=== PATIENT | female | born 1955 | race Caucasian/White ===

== ENCOUNTER 2021-12-14 16:51 | Observation (INO) ==
[2021-12-14] MEDS ORDERED: ONDANSETRON 4 MG OD TAB PO STA (17:14)
[2021-12-14 17:52] LABS: Hematocrit (blood only) 44.3 % (34.1-44.9); Hemoglobin 14.9 g/dl (12.0-16.0); Mean Corpuscular Hemoglobin 31.7 pg (25.0-34.0); Mean Corpuscular Hgb Conc 33.6 g/dL (32.0-36.0); Mean Corpuscular Volume 94.3 fL (80.0-100.0); Mean Platelet Volume 9.3 fL (9.4-12.3); Platelet Count 242 K/uL (130-400); RDW Coefficient of Variation 14.2 % (11.5-14.5); RDW Standard Deviation 49.8 fL (36.4-46.3); White Blood Count 10.18 K/ul (4.8-10.8)
[2021-12-14] MEDS ORDERED: MoRPHine SULFATE 2 MG/ML CARP IV STA (18:00)
[2021-12-14] MEDS ORDERED: SODIUM CHLORIDE 0.9% 1000ML 1,000 ML IV SCH (18:01)
[2021-12-14] MEDS ORDERED: ONDANSETRON INJ 2 MG/ML 2 ML VIAL IV STA (18:01)
[2021-12-14 18:08] LABS: Basophils # (auto) 0.03 K/uL (0-0.2); Basophils % (auto) 0.3 %; Eosinophils # (auto) 0.01 K/uL (0-0.50); Eosinophils % (auto) 0.1 %; Immature Granulocytes # (auto) 0.04 K/uL (0.00-0.02); Immature Granulocytes % (auto) 0.4 %; Lymphocytes # (auto) 0.69 K/uL (1.2-3.4); Lymphocytes % (auto) 6.8 %; Monocytes # (auto) 0.22 K/uL (0.24-0.82); Monocytes % (auto) 2.2 %; Neutrophils # (auto) 9.19 K/uL (1.4-6.5); Neutrophils % (auto) 90.2 %
[2021-12-14 18:35] LABS: Potassium 3.2 mmol/L (3.5-5.1)
[2021-12-14 18:36] LABS: Albumin Globulin Ratio 1.2 (0.9-2); Albumin Level 3.9 gm/dl (3.4-5.0); BUN Creatinine Ratio 13.8 (10-20); Bilirubin,Total 0.7 mg/dl (0.2-1.0); Creatinine Clr Calc Pharmacy 75.4 ml/min; Est GFR (African American) 87.8 ml/min; Est GFR (Non-African American) 75.8 ml/min; Globulin 3.2 gm/dl (2.5-4.0); Total Protein 7.1 gm/dl (6.0-8.3)
[2021-12-14] MEDS ORDERED: OPTIRAY 320 100ml IV ONE (18:57)
--- NOTE | 2021-12-14 19:20 | CT Scan Report ---
CT abd pelvis IV con only CLINICAL HISTORY: Abd pain, vomiting, pain radiating to the back COMPARISON STUDY: No previous studies for comparison. CT DOSE: 687.47 mGy.cm TECHNIQUE: Standard CT of the Abdomen and Pelvis was performed with IV contrast. A dose lowering damion hnique was utilized adhering to the principles of ALARA. Contrast Volume: Optiray 320, 92 ml. The patient did not receive oral contrast. FINDINGS: Lung base: The lung bases are clear. There are atelectasis versus scarring is present on the left. Abdominal cavity: There is no evidence for abdominal mass, adenopathy or ascites. Liver: There is homogeneous attenuation of the liver parenchyma. There is no evidence for enhancing m ass lesion. Spleen: There is homogeneous attenuation of the splenic parenchyma. There is no enhancing mass lesion . There is evidence for a cyst involving the lower pole of the spleen. Pancreas: There is homogeneous attenuation of the pancreatic parenchyma. There is no evidence for mas s lesion or peripancreatic fluid collection. Gall Bladder: The gallbladder is well distended with no evidence for intraluminal calculi, wall thick ening or pericholecystic edema. Adrenal glands: There are bilateral low-attenuation adrenal nodules present most characteristic of ad enomas. There is no evidence for enhancing mass lesion. Kidneys: There is homogeneous attenuation of the renal parenchyma bilaterally. There is no evidence f or renal calculus or hydronephrosis. There is no evidence for enhancing mass. There is a sharply defi arlette simple cyst present involving the left kidney. No further follow-up is necessary for this benign finding. Bowel: The appendix is dilated with edema of its wall. Mild periappendiceal inflammatory changes are seen. The findings represent early acute appendicitis. No perforation or abscess is seen. The remaining bowel loops are normally placed within the abdomen and pelvis without evidence for dila tation or obstruction. There is no evidence for mass lesion. There is diverticulosis of the descendin g and sigmoid colon without evidence for diverticulitis. There is no evidence for free air. Bladder: The bladder is within normal limits with no evidence for focal mass, calculus or diverticulu m. : There is no evidence for pelvic mass or adenopathy. There is no evidence for pelvic ascites. Vasculature: There is no evidence for aneurysmal dilatation of the abdominal aorta. Osseous structures: There is no acute osseous pathology. IMPRESSION: 1. CT findings characteristic of acute appendicitis without evidence for perforation or abscess. 2. Diverticulosis without evidence for diverticulitis. 3. Bilateral adrenal adenomas. 4. Additional nonacute findings are delineated above. ACT 112: Negative or not required by law. Electronically signed by: Gil Buchanan M.D. 12/14/2021 7:18 PM
--- NOTE | 2021-12-14 19:28 | Emergency Department Note ---
Impression & Plan Acute appendicitis ED Provider Note CHIEF COMPLAINT: Abdominal pain, vomiting HISTORY OF PRESENT ILLNESS: This 66-year-old female patient presents to the emergency department with complaints of generalized abdominal pain, vomiting. The patient states symptoms began earlier today. Patient states sometimes the pain radiates through to her back. She has had several bowel movements but no d iarrhea. Patient denies any chest pain, shortness of breath, blood in the urine or stools. Patient does smoke cigarettes. REVIEW OF SYSTEMS: A review of systems was performed with positives and pe rtinent negatives listed in the history of present illness. 10 systems were reviewed and are otherwise negative. ALLERGIES: see below MEDICATIONS: see below PMH: see below SOCIAL HISTORY: see below DDx:Appendicitis, diverticulitis, UTI, obstruction, mesenteric ischemia, aortic pathology, inflammatory bowel disease, renal colic, PUD, pancreatitis, biliary pathology, hernia, volvulus, constipation, as well as other pathologies. PHYSICAL EXAM: Vital signs reviewed. General: Chronically ill-appearing 66-year-old female, in no significant distress. HEENT: No scleral icterus, PERRLA, neck supple. Moist mucous membranes. Cardiovascular: Regular rate and rhythm, no extra sounds. Pulmonary: Clear to auscultation bilaterally, normal work of breathing. Abdomen: Soft, obese, mild diffuse tenderness, no rebound, minimal guarding, nondistended, positive bowel sounds. Musculoskeletal: Atraumatic, no peripheral edema. Neurologic: Patient awake alert and oriented x 3 Skin: Warm, dry, no rash EMERGENCY DEPARTMENT COURSE/MDM: This patient was evaluated and appeared to be in some discomfort. IV access was attained and laboratory work was drawn. Patient was hydrated with normal saline solution, given IV morphine and Zofran for her discomfort. Laboratory work reveals a normal WBC and LFTs. CT imaging of the abdomen pelvis reveals an acute appendicitis without rupture or abscess. Preoperative chest x-ray and EKG were ordered. Dr. Choe of general surgery was consulted and will evaluate the patient in the emergency department. Patient and family were informed of the findings at the bedside. Patient will be evaluated for definitive management. MONITORING: An order for cardiac monitoring was placed and the patient is noted to be in a sinus bradycardia at 51 beats per minute. RADIOLOGY: See below EKG to my interpretation reveals a sinus bradycardia at [address] segments. QTC of 426. No PVC, no PAC. DISPOSITION: Admission Past Med/Surg History Medical History Anxiety Asthmatic bronchitis Depression Hypertension Overactive bladder Surgical History History of hysterectomy Family History Mother Heart disease Myocardial infarction Diabetes Sister Diabetes Denies family history of Ovarian cancer Prostate cancer Breast cancer Colorectal cancer Social History Smoking Status: Current every day smoker Tobacco Type: Cigarettes Age Started Using Tobacco: 21; packs per day: 2; Cigarettes Per Day: at most 2 packs per day; Second Hand Exposure: No; Hx Alcohol Use: No Hx Substance Use: No Preferred Language: Hebrew Visual Impairment: No Limitations Hearing Ability: Normal marital status: Current Living Situation: Family Current Living Situation Comment: daughter and 2 grandchildren live with her current occupational status: retired current occupation: did multiple jobs Feels Safe at Home: Yes Childhood Exposure to Second-Hand Smoke: Yes caffeine: Yes Dental Care, Regularly: No Physical Activity Frequency: Does not Exercise Seatbelt Use: never Sunscreen Use: No Allergies Allergies Allergy/AdvReac Type Severity Reaction Status Date / Time No Known Allergies Allergy NONE Verified 10/23/20 14:00 Home Meds Home Medications Medication Instructions Recorded Confirmed aspirin 81 mg tablet,delayed 81 mg PO DAILY 01/24/19 10/16/21 release cholecalciferol (vitamin D3) 50 2,000 units PO DAILY 01/24/19 10/16/21 mcg (2,000 unit) capsule krill oil 500 mg capsule 500 mg PO DAILY 01/24/19 10/16/21 Previous Rx's Medication Instructions Recorded albuterol sulfate 90 mcg/actuation 2 puffs inhalation QID PRN 08/13/19 aerosol inhaler (Ventolin HFA) shortness of breath or wheezing #18 grams bupropion HCl 150 mg 24 hr tablet, 150 mg PO QAM #30 tabs 10/23/20 extended release hydrochlorothiazide 25 mg tablet 25 mg PO DAILY #90 tabs 10/01/21 oxybutynin chloride 5 mg tablet 5 mg PO BID #180 tabs 05/26/22 atenolol 100 mg tablet 100 mg PO DAILY #90 tabs 11/06/21 Results & Data (ED) Vital Signs Vital Signs - 24 hr 12/14/21 16:57 12/14/21 18:12 Temperature 36.6 C Temperature Source Temporal Artery Scan Pulse Rate 50 L Pulse Rate [Right Finger] 51 L Pulse Rhythm [Right Finger] Regular Respiratory Rate 20 16 Respiratory Effort / Characteristics Non-Labored Spontaneous Non-Labored Respiratory Depth Normal Normal Respiratory Pattern Regular Blood Pressure 213/87 H Blood Pressure [Right Arm] 149/94 H Blood Pressure Mean 129 Blood Pressure Mean [Right Arm] 112 Blood Pressure Position Sitting Pulse Oximetry 98 98 Oxygen Delivery Method Room Air Room Air Sepsis Recent Fever Within 48 Hours No Sepsis New/Unexplained Change in Mental Status N/A Sepsis Action Taken by Nursing No Action Required Home Medications Current Medication List: was personally reviewed by me Laboratory Data Attestation: I reviewed the patient's lab results. Result diagrams: 12/14/21 17:41 12/14/21 17:41 Lab Results 12/14/21 12/14/21 12/14/21 Range/Units 17:41 17:41 17:41 WBC 10.18 (4.8-10.8) K/ul RBC 4.70 (3.93-5.22) M/uL Hgb 14.9 (12.0-16.0) g/dl Hct 44.3 (34.1-44.9) % MCV 94.3 (80.0-100.0) fL MCH 31.7 (25.0-34.0) pg MCHC 33.6 (32.0-36.0) g/dL RDW Std Deviation 49.8 H (36.4-46.3) fL RDW Coeff of Manuel 14.2 (11.5-14.5) % Plt Count 242 (130-400) K/uL MPV 9.3 L (9.4-12.3) fL Immature Gran % (Auto) 0.4 % Neut % (Auto) 90.2 % Lymph % (Auto) 6.8 % Newton % (Auto) 2.2 % Eos % (Auto) 0.1 % Baso % (Auto) 0.3 % Neut # (Auto) 9.19 H (1.4-6.5) K/uL Lymph # (Auto) 0.69 L (1.2-3.4) K/uL Newton # (Auto) 0.22 L (0.24-0.82) K/uL Eos # (Auto) 0.01 (0-0.50) K/uL Baso # (Auto) 0.03 (0-0.2) K/uL Immature Gran # (Auto) 0.04 H (0.00-0.02) K/uL Sodium 135 L (136-145) mmol/L Potassium 3.2 L (3.5-5.1) mmol/L Chloride 102 (98-107) mmol/L Carbon Dioxide 24 (21-32) mmol/L Anion Gap 9 (3-11) BUN 11 (6-23) mg/dl Creatinine 0.80 (0.6-1.2) mg/dl Est Cr Clr Drug Dosing 75.4 ml/min Est GFR ( Amer) 87.8 ml/min Est GFR (Non-Af Amer) 75.8 ml/min BUN/Creatinine Ratio 13.8 (10-20) Glucose 151 H (70-99(Fasting)) mg/dl Lactate (0.4-2.0) mmol/L Calcium 9.0 (8.5-10.1) mg/dl Total Bilirubin 0.7 (0.2-1.0) mg/dl AST 13 (13-39) U/L ALT 11 (7-52) U/L Alkaline Phosphatase 83 (34-104) U/L Troponin I High Sens 12.9 (0-14) pg/ml Total Protein 7.1 (6.0-8.3) gm/dl Albumin 3.9 (3.4-5.0) gm/dl Globulin 3.2 (2.5-4.0) gm/dl Albumin/Globulin Ratio 1.2 (0.9-2) Lipase 9 L (11-82) U/L SARS-CoV-2, RNA, NAAT (NEGATIVE) 12/14/21 12/14/21 Range/Units 18:00 Unknown WBC (4.8-10.8) K/ul RBC (3.93-5.22) M/uL Hgb (12.0-16.0) g/dl Hct (34.1-44.9) % MCV (80.0-100.0) fL MCH (25.0-34.0) pg MCHC (32.0-36.0) g/dL RDW Std Deviation (36.4-46.3) fL RDW Coeff of Manuel (11.5-14.5) % Plt Count (130-400) K/uL MPV (9.4-12.3) fL Immature Gran % (Auto) % Neut % (Auto) % Lymph % (Auto) % Newton % (Auto) % Eos % (Auto) % Baso % (Auto) % Neut # (Auto) (1.4-6.5) K/uL Lymph # (Auto) (1.2-3.4) K/uL Newton # (Auto) (0.24-0.82) K/uL Eos # (Auto) (0-0.50) K/uL Baso # (Auto) (0-0.2) K/uL Immature Gran # (Auto) (0.00-0.02) K/uL Sodium (136-145) mmol/L Potassium (3.5-5.1) mmol/L Chloride (98-107) mmol/L Carbon Dioxide (21-32) mmol/L Anion Gap (3-11) BUN (6-23) mg/dl Creatinine (0.6-1.2) mg/dl Est Cr Clr Drug Dosing ml/min Est GFR ( Amer) ml/min Est GFR (Non-Af Amer) ml/min BUN/Creatinine Ratio (10-20) Glucose (70-99(Fasting)) mg/dl Lactate 1.6 (0.4-2.0) mmol/L Calcium (8.5-10.1) mg/dl Total Bilirubin (0.2-1.0) mg/dl AST (13-39) U/L ALT (7-52) U/L Alkaline Phosphatase (34-104) U/L Troponin I High Sens (0-14) pg/ml Total Protein (6.0-8.3) gm/dl Albumin (3.4-5.0) gm/dl Globulin (2.5-4.0) gm/dl Albumin/Globulin Ratio (0.9-2) Lipase (11-82) U/L SARS-CoV-2, RNA, NAAT NEGATIVE (NEGATIVE) Administered Medications Discontinued Medications Sodium Chloride (Nss 1000ml) 1,000 mls @ 999 mls/hr IV .Q1H1M PAUL Stop: 12/14/21 19:01 Last Admin: 12/14/21 18:12 Dose: 999 mls/hr Documented By: PAMELA Morphine Sulfate (Morphine Sulfate 2 Mg/Ml Carp) 2 mg IV NOW STA Stop: 12/14/21 18:01 Last Admin: 12/14/21 18:11 Dose: 2 mg Documented By: PAMELA Ondansetron HCl (Ondansetron 4 Mg Od Tab) 4 mg PO NOW STA Stop: 12/14/21 17:15 Last Admin: 12/14/21 17:29 Dose: 4 mg Documented By: NH Ondansetron HCl (Ondansetron Inj 2 Mg/Ml 2 Ml Vial) 4 mg IV NOW STA Stop: 12/14/21 18:02 Last Admin: 12/14/21 18:12 Dose: 4 mg Documented By: PAMELA Imaging Data Radiologist's Impression: Abdomen/Pelvis CT 12/14/21 17:57 CT abd pelvis IV con only CLINICAL HISTORY: Abd pain, vomiting, pain radiating to the back COMPARISON STUDY: No previous studies for comparison. CT DOSE: 687.47 mGy.cm TECHNIQUE: Standard CT of the Abdomen and Pelvis was performed with IV contrast. A dose lowering technique was utilized adhering to the principles of ALARA. Contrast Volume: Optiray 320, 92 ml. The patient did not receive oral contrast. FINDINGS: Lung base: The lung bases are clear. There are atelectasis versus scarring is present on the left. Abdominal cavity: There is no evidence for abdominal mass, adenopathy or ascites. Liver: There is homogeneous attenuation of the liver parenchyma. There is no evidence for enhancing mass lesion. Spleen: There is homogeneous attenuation of the splenic parenchyma. There is no enhancing mass lesion. There is evidence for a cyst involving the lower pole of the spleen. Pancreas: There is homogeneous attenuation of the pancreatic parenchyma. There is no evidence for mass lesion or peripancreatic fluid collection. Gall Bladder: The gallbladder is well distended with no evidence for intraluminal calculi, wall thickening or pericholecystic edema. Adrenal glands: There are bilateral low-attenuation adrenal nodules present most characteristic of adenomas. There is no evidence for enhancing mass lesion. Kidneys: There is homogeneous attenuation of the renal parenchyma bilaterally. There is no evidence for renal calculus or hydronephrosis. There is no evidence for enhancing mass. There is a sharply defined simple cyst present involving the left kidney. No further follow-up is necessary for this benign finding. Bowel: The appendix is dilated with edema of its wall. Mild periappendiceal inflammatory changes are seen. The findings represent early acute appendicitis. No perforation or abscess is seen. The remaining bowel loops are normally placed within the abdomen and pelvis without evidence for dilatation or obstruction. There is no evidence for mass lesion. There is diverticulosis of the descending and sigmoid colon without evid ence for diverticulitis. There is no evidence for free air. Bladder: The bladder is within normal limits with no evidence for focal mass, calculus or diverticulum. : There is no evidence for pelvic mass or adenopathy. There is no evidence for pelvic ascites. Vasculature: There is no evidence for aneurysmal dilatation of the abdominal aorta. Osseous structures: There is no acute osseous pathology. IMPRESSION: 1. CT findings characteristic of acute appendicitis without evidence for perforation or abscess. 2. Diverticulosis without evidence for diverticulitis. 3. Bilateral adrenal adenomas. 4. Additional nonacute findings are delineated above. ACT 112: Negative or not required by law. Electronically signed by: Gil Buchanan M.D. 12/14/2021 7:18 PM Chest X-Ray 12/14/21 19:35 XR chest 1V portable CLINICAL HISTORY: preop. Evaluate cardiopulmonary status COMPARISON STUDY: No previous studies for comparison. TECHNIQUE: 1 view of the chest FINDINGS: Single frontal view of the chest demonstrates the heart size to be mildly enlarged. There is hyperinflation of the lungs with attenuation of the pulmonary vasculature peripherally characteristic of underlying chronic obstructive pulmonary disease. The lungs are clear of alveolar opacities. There is no evidence for pleural effusion. There is no evidence for vascular congestion. There is no acute osseous pathology. IMPRESSION: 1. No acute cardiopulmonary disease. 2. Evidence for mild cardiomegaly and underlying COPD. ACT 112: Negative or not required by law. Electronically signed by: Gil Buchanan M.D. 12/14/2021 7:48 PM Blood Pressure Blood Pressure Findings: Elevated blood pressure Blood Pressure Disposition: did not require urgent referral Discharge Plan Visit Data Chief Complaint: Abdominal Pain Stated Complaint: ILLNESS, ABDOMINAL PAIN ED Provider: Gloria Álvarez Discharge Problem: Acute appendicitis Patient Disposition: Admitted As Inpatient Forms Stand Alone Forms: [facility] Prescriptions Prescriptions: No Action albuterol sulfate [Ventolin HFA] 90 mcg/actuation HFA aerosol inhaler 2 puffs INH QID PRN (Reason: shortness of breath or wheezing) Qty: 18 3RF oxybutynin chloride 5 mg tablet 5 mg PO BID Qty: 180 3RF hydrochlorothiazide 25 mg tablet 25 mg PO DAILY Qty: 90 3RF atenolol 100 mg tablet 100 mg PO DAILY Qty: 90 3RF bupropion HCl 150 mg tablet extended release 24 hr 150 mg PO QAM Qty: 30 5RF Rx Instructions: needs to be 30 day supply due to cost aspirin 81 mg tablet,delayed release (DR/EC) 81 mg PO DAILY cholecalciferol (vitamin D3) 2,000 unit capsule 2,000 units PO DAILY krill oil 500 mg capsule 500 mg PO DAILY Referrals Referrals: PCP,NO [Primary Care Provider] -
--- NOTE | 2021-12-14 19:49 | XRay Report ---
XR chest 1V portable CLINICAL HISTORY: preop. Evaluate cardiopulmonary status COMPARISON STUDY: No previous studies for comparison. TECHNIQUE: 1 view of the chest FINDINGS: Single frontal view of the chest demonstrates the heart size to be mildly enlarged. There is hyperinf lation of the lungs with attenuation of the pulmonary vasculature peripherally characteristic of unde rlying chronic obstructive pulmonary disease. The lungs are clear of alveolar opacities. There is no evidence for pleural effusion. There is no evidence for vascular congestion. There is no acute osseou s pathology. IMPRESSION: 1. No acute cardiopulmonary disease. 2. Evidence for mild cardiomegaly and underlying COPD. ACT 112: Negative or not required by law. Electronically signed by: Gil Buchanan M.D. 12/14/2021 7:48 PM
--- NOTE | 2021-12-14 20:04 | Surgery Consultation ---
Date of Consultation December 14, 2021 Assessment & Plan (1) Acute appendicitis: pt is a 66 year-old female who presents with one day history RLQ pain, IMP: acute appendicitis, plan, I recommend to do laparoscopic appendectomy, possible open , D/W benefits, risks and alternatives of the surgery, the risks- infection, bleeding, injury other organs, abscess, incisional hernia, [place], pt and her daughter understood, they agrees with surgery, pt signed informed consent, I answered all questions, pre-op antibiotic, History of Present Illness Reason for Consultation: acute appendicitis Requesting Physician: Gloria Álvarez MD History of Present Illness CHIEF COMPLAINT: Abdominal pain, vomiting HISTORY OF PRESENT ILLNESS: This 66-year-old female patient presents to the emergency department with complaints of generalized abdominal pain, vomiting. The patient states symptoms began earlier today. Patient states sometimes the p ain radiates through to her back. She has had several bowel movements but no diarrhea. Patient denies any chest pain, shortness of breath, blood in the urine or stools. Patient does smoke cigarettes. I ( El Choe MD ) got a call for consult acute appendicitis, I reviewed pt's H/P, labs, CT scan with pt and her daughter, REVIEW OF SYSTEMS: A review of systems was performed with positives and pertinent negatives listed in the history of present illness. 10 systems were reviewed and are otherwise negative. Allergies Allergy/AdvReac Type Severity Reaction Status Date / Time No Known Allergies Allergy NONE Verified 10/23/20 14:00 Home Medications Medication Instructions Recorded Confirmed Type aspirin 81 mg tablet,delayed 81 mg PO DAILY 01/24/19 10/16/21 History release cholecalciferol (vitamin D3) 50 2,000 units PO DAILY 01/24/19 10/16/21 History mcg (2,000 unit) capsule krill oil 500 mg capsule 500 mg PO DAILY 01/24/19 10/16/21 History albuterol sulfate 90 mcg/actuation 2 puffs inhalation QID PRN 08/13/19 10/16/21 Rx aerosol inhaler (Ventolin HFA) shortness of breath or wheezing #18 grams bupropion HCl 150 mg 24 hr tablet, 150 mg PO QAM #30 tabs 10/23/20 10/16/21 Rx extended release hydrochlorothiazide 25 mg tablet 25 mg PO DAILY #90 tabs 10/01/21 12/14/21 Rx oxybutynin chloride 5 mg tablet 5 mg PO BID #180 tabs 10/01/21 12/14/21 Rx atenolol 100 mg tablet 100 mg PO DAILY #90 tabs 11/06/21 12/14/21 Rx Patient History Medical History Anxiety Asthmatic bronchitis Depression Hypertension Overactive bladder Surgical History History of hysterectomy Family History Mother Heart disease Myocardial infarction Diabetes Sister Diabetes Denies family history of Ovarian cancer Prostate cancer Breast cancer Colorectal cancer Social History Smoking Status: Current every day smoker Tobacco Type: Cigarettes Age Started Using Tobacco: 21; packs per day: 2; Cigarettes Per Day: at most 2 packs per day; Second Hand Exposure: No; Hx Alcohol Use: No Hx Substance Use: No Preferred Language: [place] Visual Impairment: No Limitations Hearing Ability: Normal marital status: Current Living Situation: Family Current Living Situation Comment: daughter and 2 grandchildren live with her current occupational status: retired current occupation: did multiple jobs Feels Safe at Home: Yes Childhood Exposure to Second-Hand Smoke: Yes caffeine: Yes Dental Care, Regularly: No Physical Activity Frequency: Does not Exercise Seatbelt Use: never Sunscreen Use: No Review of Systems Constitutional: as per Subjective / HPI Eyes: as per Subjective / HPI Respiratory: as per Subjective / HPI Cardiovascular: Additional Comments: HTN Gastrointestinal: as per Subjective / HPI Genitourinary: overactive bladder Neurologic: as per Subjective / HPI Psychiatric: as per Subjective / HPI depression, anxiety Endocrine: as per Subjective / HPI Hematologic / Lymphatic: as per Subjective / HPI Physical Exam Constitutional: WD/WN, vitals as above Eyes: PERRL, conjunctivae normal, anicteric sclerae Neck: trachea midline, no thyromegaly Respiratory: normal respiratory effort, lungs clear to auscultation Cardiovascular: RRR, no murmur, no edema Gastrointestinal (Abdomen): soft, mild tenderness at RLQ, no rebound pain, no distend, BS + Musculoskeletal: no cyanosis or clubbing, extremities motor strength 5/5 Neurologic: patellar DTR's 2+ bilat, sensation intact Psychiatric: A+Ox3, euthymic affect Results & Data ([facility]) Vital Signs (Past 12 Hours) Vital Signs Temp Pulse Pulse Resp BP BP Pulse Ox 12/14/21 18:12 51 L 16 149/94 H 98 12/14/21 16:57 36.6 C 50 L 20 213/87 H 98 O2 Del Method 12/14/21 18:12 Room Air 12/14/21 16:57 Room Air Laboratory Results Abnormal lab results 12/14/21 12/14/21 Range/Units 17:41 17:41 RDW Std Deviation 49.8 H (36.4-46.3) fL MPV 9.3 L (9.4-12.3) fL Neut # (Auto) 9.19 H (1.4-6.5) K/uL Lymph # (Auto) 0.69 L (1.2-3.4) K/uL [place] # (Auto) 0.22 L (0.24-0.82) K/uL Immature Gran # (Auto) 0.04 H (0.00-0.02) K/uL Sodium 135 L (136-145) mmol/L Potassium 3.2 L (3.5-5.1) mmol/L Glucose 151 H (70-99(Fasting)) mg/dl Lipase 9 L (11-82) U/L Diagnostic Findings CT abd pelvis IV con only CLINICAL HISTORY: Abd pain, vomiting, pain radiating to the back COMPARISON STUDY: No previous studies for comparison. CT DOSE: 687.47 mGy.cm TECHNIQUE: Standard CT of the Abdomen and Pelvis was performed with IV contrast. A dose lowering technique was utilized adhering to the principles of ALARA. Contrast Volume: Optiray 320, 92 ml. The patient did not receive oral contrast. FINDINGS: Lung base: The lung bases are clear. There are atelectasis versus scarring is present on the left. Abdominal cavity: There is no evidence for abdominal mass, adenopathy or ascites. Liver: There is homogeneous attenuation of the liver parenchyma. There is no evidence for enhancing mass lesion. Spleen: There is homogeneous attenuation of the splenic parenchyma. There is no enhancing mass lesion. There is evidence for a cyst involving the lower pole of the spleen. Pancreas: There is homogeneous attenuation of the pancreatic parenchyma. There is no evidence for mass lesion or peripancreatic fluid collection. Gall Bladder: The gallbladder is well distended with no evidence for intraluminal calculi, wall thickening or pericholecystic edema. Adrenal glands: There are bilateral low-attenuation adrenal nodules present most characteristic of adenomas. There is no evidence for enhancing mass lesion. Kidneys: There is homogeneous attenuation of the renal parenchyma bilaterally. There is no evidence for renal calculus or hydronephrosis. There is no evidence for enhancing mass. There is a sharply defined simple cyst present involving the left kidney. No further follow-up is necessary for this benign finding. Bowel: The appendix is dilated with edema of its wall. Mild periappendiceal inflammatory changes are seen. The findings represent early acute appendicitis. No perforation or abscess is seen. The remaining bowel loops are normally placed within the abdomen and pelvis without evidence for dilatation or obstruction. There is no evidence for mass lesion. There is diverticulosis of the descending and sigmoid colon without evidence for diverticulitis. There is no evidence for free air. Bladder: The bladder is within normal limits with no evidence for focal mass, calculus or diverticulum. : There is no evidence for pelvic mass or adenopathy. There is no evidence for pelvic ascites. Vasculature: There is no evidence for aneurysmal dilatation of the abdominal aorta. Osseous structures: There is no acute osseous pathology. IMPRESSION: 1. CT findings characteristic of acute appendicitis without evidence for perforation or abscess. 2. Diverticulosis without evidence for diverticulitis. 3. Bilateral adrenal adenomas. 4. Additional nonacute findings are delineated above.
[2021-12-14] MEDS ORDERED: cefOXitin 2,000 MG/60 ML BAG IV STA (20:08)
--- NOTE | 2021-12-14 20:08 | History & Physical Bridge Note ---
Date of Service December 14, 2021 History & Physical Bridge Note I have examined the patient, reviewed the History & Physical and in the interval since the performance of the History & Physical I have noted the following changes of clinical significance: no changes noted
[2021-12-14 20:14] LABS: Appearance Urine Clear (Clear); Bacteria Urine Automated Negative (Negative); Bilirubin Urine Negative (Negative); Blood Urine Trace (Negative); Color Urine Yellow; Epithelial Cell Urine Auto 20-30 /lpf (0-5); Glucose Urine UA Trace (Negative); Ketones Urine Negative (Negative); Leukocyte Esterase Urine Negative (Negative); Nitrite Urine Negative (Negative); Specific Gravity Urine 1.039 (1.000-1.030); Urobilinogen Urine Negative (Negative); pH Urine 8.5 (4.5-7.5)
[2021-12-14] MEDS ORDERED: BACITRACIN OINT 15 GM TUBE ONE (20:14)
[2021-12-14] MEDS ORDERED: LIDOCAINE 1% LOCAL 20 ML VIAL ONE (20:14)
[2021-12-14] MEDS ORDERED: BUPIVACAINE 0.5 % 5 MG/1 ML MPF 30ML VIAL ONE (20:14)
[2021-12-14 20:24] LABS: Protein Urine 1+ (Negative)
--- NOTE | 2021-12-14 20:50 | Anesthesiology Consultation ---
Date of Service December 14, 2021 Assessment & Plan Chart Review Chart Review: Acceptable Risk for Surgery and Patient NOT seen in Pre Admission Testing Consults Requested none ASA [id number] Proposed Anesthesia Anesthesia Type: General Risk / Benefits Reviewed With: PT / POA / Parent / Guardian, Accepts Plan and Informed Consent Obtained History Surgery Operation Date: 12/14/21 21:00 Proposed Procedures p Laparoscopic Appendectomy(Not Applicable) - El Choe MD Height/Weight Height: 5 ft 6 in Weight: 88.5 kg Allergies Allergy/AdvReac Type Severity Reaction Status Date / Time No Known Allergies Allergy NONE Verified 12/14/21 20:22 Medications Home Medications Medication Instructions Recorded Confirmed Last Taken aspirin 81 mg tablet,delayed 81 mg PO DAILY 01/24/19 12/14/21 12/14/21 release cholecalciferol (vitamin D3) 50 2,000 units PO DAILY 01/24/19 12/14/21 12/14/21 mcg (2,000 unit) capsule krill oil 500 mg capsule 500 mg PO DAILY 01/24/19 12/14/21 12/14/21 hydrochlorothiazide 25 mg tablet 25 mg PO DAILY #90 tabs 10/01/21 12/14/21 12/14/21 atenolol 100 mg tablet 100 mg PO DAILY #90 tabs 11/06/21 12/14/21 12/14/21 oxybutynin chloride 5 mg tablet 5 mg PO DAILY 12/14/21 12/14/21 12/14/21 NPO Date Last Intake of Fluids: 12/14/21 Time Last Intake of Fluids: 19:00 Last Intake of Fluids Comment: one ice chip Date Last Intake of Solids: 12/13/21 Past Medical History Medical History Anxiety Asthmatic bronchitis Depression Hypertension Overactive bladder Exercise / Class Metabolic Activity II 4-5 Yardwork/Stairs/Walk up hill Past Family History Family History Mother Heart disease Myocardial infarction Diabetes Sister Diabetes Denies family history of Ovarian cancer Prostate cancer Breast cancer Colorectal cancer Past Surgical History Surgical History History of hysterectomy Past Anesthesia History No Hx of Anesthesia Complications and No Family Hx of Anesthesia Complications History of PONV No Hx of PONV and No Hx of Motion Sickness Social History Smoking Status: Current every day smoker Smoking cigarettes per day: at most 2 packs per day Hx Alcohol Use: No Hx Substance Use: No Physical Exam Vital Signs Last Vital Signs Temp 36.6 C 12/14/21 16:57 Pulse 48 L 12/14/21 20:21 Resp 20 12/14/21 20:21 BP 204/104 H 12/14/21 20:21 Pulse Ox 98 12/14/21 20:21 O2 Del Method 12/14/21 20:21 Constitutional + obese ENMT Mouth: no dentition abnormality Thyromental Distance: > or= 3.5 Finger Breadths Mallampati Class: II Neck normal visual inspection Respiratory normal respiratory effort Auscultation: + rhonchi (few scattered coarse breath sounds with mildly prolonged expiratory phase.) Cardiovascular Rate/Rhythm: regular rate and regular rhythm Musculoskeletal Spine: normal cervical ROM and no pain with cervical ROM Psychiatric Orientation: alert Testing Laboratory Results 12/14/21 17:41 12/14/21 17:41 Urine Color Yellow 12/14/21 19:30 Urine Appearance Clear (Clear) 12/14/21 19:30 Urine pH 8.5 (4.5-7.5) H 12/14/21 19:30 Ur Specific [place] 1.039 (1.000-1.030) H 12/14/21 19:30 Urine Protein 1+ (Negative) H 12/14/21 19:30 Urine Glucose (UA) Trace (Negative) H 12/14/21 19:30 Urine Ketones Negative (Negative) 12/14/21 19:30 Urine Nitrite Negative (Negative) 12/14/21 19:30 Ur Leukocyte Esterase Negative (Negative) 12/14/21 19:30 Urine WBC (Auto) 1-5 /hpf (0-5) 12/14/21 19:30 Urine RBC (Auto) 10-30 /hpf (0-4) H 12/14/21 19:30 U Hyaline Cast (Auto) 1-5 /lpf (0-5) 12/14/21 19:30 U Epithel Cells (Auto) 20-30 /lpf (0-5) H 12/14/21 19:30 Urine Bacteria (Auto) Negative (Negative) 12/14/21 19:30 Chest X-Ray Date: 12/14/21 Findings: + NAD
[2021-12-14] MEDS ORDERED: fentaNYL citrate 100 MCG/2 ML VIAL ONE (20:57)
[2021-12-14] MEDS ORDERED: ONDANSETRON INJ 2 MG/ML 2 ML VIAL ONE ×2 (20:57→21:49)
[2021-12-14] MEDS ORDERED: NEOSTIGMINE METHYLSULFATE 1 MG/ML 10ML VIAL ONE (21:49)
[2021-12-14] MEDS ORDERED: KETOROLAC 30 MG/ML VIAL ONE (21:49)
[2021-12-14] MEDS ORDERED: GLYCOPYRROLATE 0.2 MG/ML VIAL ONE (21:49)
[2021-12-14] MEDS ORDERED: ROCURONIUM BROMIDE 10 MG/ML 5 ML VIAL IV ONE (21:49)
[2021-12-14] MEDS ORDERED: SUCCINYLCHOLINE CHLORIDE 20 MG/ML 10 ML VIAL IV ONE (21:49)
[2021-12-14] MEDS ORDERED: DEXAMETHASONE SOD INJ 4 MG/ML VIAL ONE (21:49)
[2021-12-14] MEDS ORDERED: PROPOFOL IV EMULSION 10 MG/ML 20 ML VIAL IV ONE (21:49)
[2021-12-14] MEDS ORDERED: LIDOCAINE 2% MPF LOCAL 5 ML VIAL INFIL ONE (21:49)
[2021-12-14] MEDS ORDERED: MoRPHine SULFATE 2 MG/ML CARP ONE (22:05)
--- NOTE | 2021-12-14 22:13 | Post Operative Brief Note ---
Immediate Post Op Note v1 Date of Surgery December 14, 2021 Pre & Post Diagnosis Operation Date: 12/14/21 21:00 Pre-Op Diagnosis: Acute appendicitis Post-Op Diagnosis: Acute appendicitis I identified the patient and participated in the time-out.: Yes Procedure Operation Date: 12/14/21 21:00 Actual Procedures p Laparoscopic Appendectomy(Not Applicable) - El Choe MD Surgeon El Choe MD Photographic Artist surgical processor Estimated Blood Loss 10 Findings Consistent with Post-Op Diagnosis acute appendicitis, enlarge appendix Fluids 800ml Specimens appendix Anesthesia Type General Complications none Disposition Accompanied Patient To Recovery: Yes
[2021-12-14] MEDS ORDERED: ONDANSETRON INJ 2 MG/ML 2 ML VIAL IV PRN (22:17)
--- NOTE | 2021-12-14 22:37 | Anesthesiology Progress Note ---
Date of Service December 14, 2021 Anesthesia Post Procedure Vital Signs Vital Signs: Temp Pulse Pulse Pulse Resp BP BP 12/14/21 22:25 36.3 C L 84 18 152/76 H 12/14/21 20:21 48 L 20 204/104 H 12/14/21 18:12 51 L 16 149/94 H 12/14/21 16:57 36.6 C 50 L 20 213/87 H Pulse Ox O2 Del Method O2 Flow Rate 12/14/21 22:25 93 Oxymask 10 12/14/21 20:21 98 Room Air 12/14/21 18:12 98 Room Air 12/14/21 16:57 98 Room Air Pain Intensity Abdomen: Pain Intensity: 6 Transfer of Care Handoff Completed per policy Notes Mental Status: alert / awake / arousable Patient Amnestic to Procedure: Yes Nausea / Vomiting: adequately controlled Pain: adequately controlled Airway Patency, RR, SpO2: stable & adequate BP & HR: stable & adequate Hydration State: stable & adequate Anesthetic Complications: no major complications apparent
[2021-12-14] MEDS ORDERED: oxyCODONE/ACETAMINOPHEN 5mg/325mg TAB PO PRN (22:59)
[2021-12-14] MEDS ORDERED: HYDROmorphone INJ 0.5 MG/0.5 ML SYR IV PRN (22:59)
[2021-12-14] MEDS ORDERED: LACTATED RINGER'S 1,000 ML IV SCH (22:59)
[2021-12-14] MEDS: POTASSIUM CHLORIDE 10 MEQ TABCR PO SCH (23:42)
--- NOTE | 2021-12-15 07:05 | Operative Report (OR) ---
PREOPERATIVE DIAGNOSIS: Acute appendicitis. POSTOPERATIVE DIAGNOSIS: Acute appendicitis. OPERATION: Laparoscopic appendectomy. SURGEON: El Choe MD ANESTHESIA: General. ESTIMATED BLOOD LOSS: About 10 mL. FINDINGS: Acute appendicitis and enlarged appendix. COMPLICATIONS: None. INDICATIONS FOR THE PROCEDURE: This is a 66-year-old female who presented to the ED with acute abdom inal pain. The patient had a CT scan diagnosis of acute appendicitis. I recommended to do laparosco pic appendectomy, possible open. I did talk to the patient and the patient's daughter about the bene fits, risks, and alternate procedures. I indicated the risks may include, but not limited to, such a s bleeding, infection, injury to other organs, abscess, incisional hernia, myocardial infarction, DVT , stroke, even . They understand. The patient signed informed consent and I answered all quest ions. DETAILS OF PROCEDURE: After we identified the patient and verified the procedure, we brought in the patient to the OR, put the patient on the supine position on the OR table. The patient received SCDs on bilateral legs to prevent DVT. Also, the patient received 2 grams cefoxitin IV for prophylactic antibiotic. The patient received general anesthesia without difficulty. The abdomen was prepped and draped in routine sterile fashion. After timeout, I injected the local anesthesia by using 1% lidoc ligia mixed with 0.5% Marcaine just above the umbilicus. Then I made a small incision just above umbi licus, opened fascia, opened peritoneum. Under direct vision, put a Lona trocar in, connected to C O2 to create pneumoperitoneum, flow rate at 6 liters per minute, pressure not more than 14 mmHg. Once we got a nice pneumoperitoneum, we put a camera in, looked around the abdomen. It showed enlarg ed with inflammation of the appendix along with scar tissue around the appendix. Once we confirmed t he diagnosis of acute appendicitis, we put another two 5 mm trocars on the right lower quadrant right above right side of abdomen. Once all trocars in, we used the Harmonic to take down the appendiceal around the appendix and rechecked and no active bleeding. Then, we used a 45 mm Endo-MCKAY stapler fo r transection on the base of appendix, rechecked the staple line, intact, and no leak. Then we remov ed the appendix through the catch bag. Then we reinserted the Lona trocar to connect to CO2 again to create pneumoperitoneum and looked around the abdomen. No leak, no active bleeding from staple li ne. Then, we removed all trocars under direct vision. No active bleeding from the trocar site. Pne umoperitoneum was released. Then I closed the umbilical incision fascial layer by using 0 Vicryl fig [id number] x2, closed the subcutaneous layer by using 2-0 Vicryl interruptedly, closed skin by in diana 4-0 Vicryl continuous running, closed another two 5 mm trocar sites of skin only by using 4-0 Vicry l. Then, we put the dressing on. The patient tolerated the procedure well. All the instrument, nee dle, and sponge counts were correct x2 at the end of the case. The patient was transferred to [facility] room in stable condition. The specimen was sent to pathology. After the procedure, I did talk to the patient about the OR finding and the procedure we did, she understands. Job ID: [id number]
[2021-12-15] MEDS ORDERED: OXYBUTYNIN CHLORIDE 5 MG TAB PO SCH (09:00)
[2021-12-15] MEDS ORDERED: ATENOLOL 50 MG TABLET PO SCH (09:00)
[2021-12-15] MEDS ORDERED: ASPIRIN 81 MG ECTAB PO SCH (09:00)
[2021-12-15] MEDS ORDERED: hydroCHLOROthiazide 25 MG TAB PO SCH (09:00)
[2021-12-15] MEDS ORDERED: NON-FORMULARY MEDICATION (Krill Oil 500 mg capsule) PO SCH (09:00)
[2021-12-15] MEDS ORDERED: CHOLECALCIFEROL 1,000 UNITS 25 MCG TAB PO SCH (09:00)
[2021-12-15] MEDS: POTASSIUM CHLORIDE 10 MEQ TABCR PO SCH (09:08)
[2021-12-15 11:32] LABS: Basophils # (auto) 0.02 K/uL (0-0.2); Basophils % (auto) 0.1 %; Hematocrit (blood only) 41.3 % (34.1-44.9); Hemoglobin 14.2 g/dl (12.0-16.0); Immature Granulocytes # (auto) 0.23 K/uL (0.00-0.02); Immature Granulocytes % (auto) 1.5 %; Lymphocytes # (auto) 0.98 K/uL (1.2-3.4); Lymphocytes % (auto) 6.6 %; Mean Corpuscular Hemoglobin 31.5 pg (25.0-34.0); Mean Corpuscular Hgb Conc 34.4 g/dL (32.0-36.0); Mean Corpuscular Volume 91.6 fL (80.0-100.0); Mean Platelet Volume 9.4 fL (9.4-12.3); Monocytes # (auto) 0.74 K/uL (0.24-0.82); Neutrophils # (auto) 12.97 K/uL (1.4-6.5); Neutrophils % (auto) 86.8 %; Platelet Count 261 K/uL (130-400); RDW Coefficient of Variation 14.5 % (11.5-14.5); RDW Standard Deviation 48.7 fL (36.4-46.3); Red Blood Count 4.51 M/uL (3.93-5.22); White Blood Count 14.94 K/ul (4.8-10.8)
[2021-12-15] MEDS ORDERED: POTASSIUM CHLORIDE 10 MEQ TABCR PO STA (12:28)
--- NOTE | 2021-12-15 13:18 | Surgery Progress Note ---
Date of Service December 15, 2021 Assessment & Plan (1) Acute appendicitis: Plan: pt is a 66 year-old female who presents with one day history RLQ pain, IMP: acute appendicitis, plan, I recommend to do laparoscopic appendectomy, possible open , D/W benefits, risks and alternatives of the surgery, the risks- infection, bleeding, injury other organs, abscess, incisional hernia, [place], pt and her daughter understood, they agrees with surgery, pt signed informed consent, I answered all questions, pre-op antibiotic, 12/15/2021 1:16PM F/U S/P lap appy, POD 1 pt is doing fine, pt wants to go home today, po K-dur for low K, post-op care instruction was given, F/U 2 weeks, I answered all questions, Admission and Anticipated Discharge Date Admission Date: December 14, 2021 Subjective F/U S/P lap appy, POD 1 pt is doing fine, no significant abdominal pain, tolerated diet, no fever, Review of Systems Constitutional: as per Subjective / HPI Eyes: as per Subjective / HPI Respiratory: as per Subjective / HPI Cardiovascular: Additional Comments: HTN Gastrointestinal: as per Subjective / HPI Genitourinary: overactive bladder Neurologic: as per Subjective / HPI Psychiatric: as per Subjective / HPI depression, anxiety Endocrine: as per Subjective / HPI Hematologic / Lymphatic: as per Subjective / HPI Physical Exam Constitutional: WD/WN, vitals as above Eyes: PERRL, conjunctivae normal, anicteric sclerae Neck: trachea midline, no thyromegaly Respiratory: normal respiratory effort, lungs clear to auscultation Cardiovascular: RRR, no murmur, no edema Gastrointestinal (Abdomen): soft, mild tenderness at incisions site, no rebound pain, no distend, BS +, all incisions intact, no redness, Musculoskeletal: no cyanosis or clubbing, extremities motor strength 5/5 Neurologic: patellar DTR's 2+ bilat, sensation intact Psychiatric: A+Ox3, euthymic affect Results & Data ([facility]) Vital Signs (Past 12 Hours) Vital Signs Temp Pulse Resp BP Pulse Ox O2 Del Method O2 Flow Rate 12/15/21 11:26 95 Room Air 12/15/21 08:15 94 Room Air 12/15/21 08:00 99 3 12/15/21 05:42 36.7 C 69 20 126/79 98 Nasal Cannula 12/15/21 02:44 36.7 C 63 18 145/63 H 98 Nasal Cannula 2.0 Laboratory Results Abnormal lab results 12/14/21 12/14/21 12/14/21 Range/Units 17:41 17:41 19:30 WBC (4.8-10.8) K/ul RDW Std Deviation 49.8 H (36.4-46.3) fL MPV 9.3 L (9.4-12.3) fL Neut # (Auto) 9.19 H (1.4-6.5) K/uL Lymph # (Auto) 0.69 L (1.2-3.4) K/uL [place] # (Auto) 0.22 L (0.24-0.82) K/uL Immature Gran # (Auto) 0.04 H (0.00-0.02) K/uL Sodium 135 L (136-145) mmol/L Potassium 3.2 L (3.5-5.1) mmol/L Glucose 151 H (70-99(Fasting)) mg/dl Lipase 9 L (11-82) U/L Urine pH 8.5 H (4.5-7.5) Ur Specific [place] 1.039 H (1.000-1.030) Urine Protein 1+ H (Negative) Urine Glucose (UA) Trace H (Negative) Urine Blood Trace H (Negative) Urine RBC (Auto) 10-30 H (0-4) /hpf U Epithel Cells (Auto) 20-30 H (0-5) /lpf 12/15/21 Range/Units 10:57 WBC 14.94 H (4.8-10.8) K/ul RDW Std Deviation 48.7 H (36.4-46.3) fL MPV (9.4-12.3) fL Neut # (Auto) 12.97 H (1.4-6.5) K/uL Lymph # (Auto) 0.98 L (1.2-3.4) K/uL [place] # (Auto) (0.24-0.82) K/uL Immature Gran # (Auto) 0.23 H (0.00-0.02) K/uL Sodium (136-145) mmol/L Potassium (3.5-5.1) mmol/L Glucose (70-99(Fasting)) mg/dl Lipase (11-82) U/L Urine pH (4.5-7.5) Ur Specific [place] (1.000-1.030) Urine Protein (Negative) Urine Glucose (UA) (Negative) Urine Blood (Negative) Urine RBC (Auto) (0-4) /hpf U Epithel Cells (Auto) (0-5) /lpf
--- NOTE | 2021-12-15 14:52 | Discharge Summary (DS) ---
DATE OF ADMISSION: 12/14/2021 DATE OF DISCHARGE: 12/15/2021. ADMISSION DIAGNOSIS: Acute appendicitis. DISCHARGE DIAGNOSIS: Acute appendicitis. OPERATION: Laparoscopic appendectomy. SURGEON: El Choe MD. DETAILS OF DISCHARGE SUMMARY: This is a 66-year-old female who presented to ED with acute abdominal pain. The patient had a CT scan diagnosis of acute appendicitis. We took the patient to the OR, we did laparoscopic appendectomy on 12/14/2021. The patient tolerated the procedure well. After the pr ocedure, the patient was transferred to recovery room and then to regular floor. The patient is bobby sloan. No significant abdominal pain. He tolerated the diet, no nausea, no vomiting, no fever. PHYSICAL EXAMINATION: VITAL SIGNS: Temperature is 36.7, respiratory rate 20, heart rate 69, blood pressure 126/79, O2 satu ration 95% on room air. GENERAL: The patient is alert, awake, oriented x3. HEENT: Within normal limitation. NEUROLOGIC: Intact. NECK: No JVD. CHEST: Bilateral lung sounds clear. HEART: Normal S1 and S2. No murmur. ABDOMEN: Soft, mild tenderness on the incision site. No rebound pain, no distention. Bowel sounds positive. All incisions intact. No redness. EXTREMITIES: No edema. The patient wanted to go home today. We gave the patient postop care instruction, patient understand s and I answered all questions. I will follow up the patient in 2 weeks. Job ID: [id number]
--- NOTE | 2021-12-16 05:37 | Electrocardiogram Report ---
Test Reason : Blood Pressure : / mmHG Vent. Rate : 050 BPM Atrial Rate : 050 BPM P-R Int : 208 ms QRS Dur : 094 ms QT Int : 468 ms P-R-T Axes : 007 064 057 degrees QTc Int : 426 ms Poor data quality, interpretation may be adversely affected Sinus bradycardia Nonspecific T wave abnormality When compared with ECG of 05-JUN-2009 12:48, Vent. rate has decreased BY 28 BPM Nonspecific T wave abnormality is now Present in Anterior leads Confirmed by Simon Chacko ([id number]) on 12/16/2021 5:36:48 AM Referred By: REFERRED SELF Confirmed By:Simon Chacko
== END 2021-12-15 15:51 | disposition home or self-care (01) ==
LOC: ED 16:51 → 3N 20:24 → ASU 20:24